=== PATIENT | female | born 1960 | race Caucasian/White ===

== ENCOUNTER → 2019-12-31 | Outpatient (CLI) | payer OTHER ==
--- NOTE | 2019-12-31 11:57 | XR ---
EXAMINATION TYPE: XR hand limited RT DATE OF EXAM: 12/31/2019 COMPARISON: None HISTORY: Arthritis, pain TECHNIQUE: 2 view right hand FINDINGS: There are degenerative joint changes of the index finger. Loss of joint space is present in the distal interphalangeal joint spaces. Deformity and some spurring is present of the distal interp halangeal joint spaces. Some similar degenerative changes are at the proximal interphalangeal joint s pace of the index finger. Milder loss is in the proximal interphalangeal joint spaces. Metacarpal pha langeal joint space is more normal appearance. IMPRESSION: 1. 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
== END | disposition home or self-care (01) ==
LOC: RADXRMAIN 11:13
PROVIDERS: ATTEND Family Medicine
DX: M79.641 Pain in right hand (principal)